=== PATIENT | male | born 1990 | race Two or more races ===

== ENCOUNTER 2017-03-23 11:36 | Emergency (ER) | payer OTHER ==
[~2017-03-23] VITALS: Ht 157.5 cm; Wt 45.6 kg
[2017-03-23 11:39] VITALS: BP 107/71
[2017-03-23] MEDS ORDERED: FLUORESCEIN OPHTHALMIC 1 MG STRIP ONE (12:40)
== END 2017-03-23 13:34 | disposition home or self-care (01) ==
LOC: ED 13:15
DX: H10.023 Other mucopurulent conjunctivitis, bilateral (principal)
CPT/HCPCS: 99283